=== PATIENT | male | born 1970 | race Caucasian/White ===

== ENCOUNTER 2016-12-09 05:39 | Day surgery (SDC) | payer MEDICARE ==
[~2016-12-09] VITALS: Ht 185.4 cm; Wt 105.2 kg
[~2016-12-09 05:39] MED LIST: ATIVAN1 MG PO; ATIVAN2 MG PO; BUSPIRONE HCL30 MG PO; DESERYL100 MG PO; DESYREL50 MG PO; HYDROCODONE-APA1 TAB PO; KEPPRA500 MG PO; NEUPRO TRANSDERM; NEUPRO1 EACH TOPICAL; NEURONTIN 300300 MG PO; NEURONTIN800 MG PO; NORCO 5/325 TAB1 TA1 PO; PAXIL20 MG PO; PERCOCET 10/3251 TA1 PO; ZANTAC 2525 MG; ZOFRAN4 MG PO
[2016-12-09 07:50] VITALS: BP 124/81; Ht 185.4 cm; Wt 105.2 kg
[2016-12-09] MEDS ORDERED: HYDROCODONE-APA1 TAB PO (10:48)
--- NOTE | 2016-12-09 11:33 | NUR ---
1130 BACK FROM LT CHEST WALL AND RT GROIN LIPOMA REMOVAL DRESSING C/D/I NO BLEEDING. PAIN BETTER 1. DENIES NAUSEA.
--- NOTE | 2016-12-09 12:32 | NUR ---
1200 PAIN BETTER DRESSINGS RT GROIN AND LT FLANK C/D/I NO BLEEDING ICE PACK ON PATIENT.NO NEEDS VOICED PAIN A 2.
--- NOTE | 2016-12-09 12:38 | NUR ---
1230 UP AND VOIDED. DRESSINGS C/D/I NO BLEEDING.BELONGINGS GIVEN. IV DCD CATHETER INTACT. DISCHARGE INSTRUCTIONS GIVEN TO PATIENT AND VERBALLY UNDERSTANDS, WANTS TO GO HOME AND TOLD OFFICE WAS CLOSED AND NEEDED TO MAKE A FOLLOWUP APPOINTMENT.
--- NOTE | 2016-12-09 13:15 | OP ---
PATIENT NAME: KADE HE MEDICAL RECORD: [id number] :74 LOCATION:D.OPS ADMISSION DATE: SURGEON: SE VERA MD DATE OF OPERATION: 12/09/2016 PREOPERATIVE DIAGNOSES: 1. Left flank lipoma. 2. Right inguinal lymphadenopathy. 3. Fibromyalgia. 4. History of astrocytoma. POSTOPERATIVE DIAGNOSES: 1. Left flank lipoma. 2. Right inguinal lymphadenopathy. 3. Fibromyalgia. 4. History of astrocytoma. PROCEDURE: 1. Excisional biopsy of right groin lymph node. 2. Excision of a 1 cm left flank lipoma. SURGEON: Se Vera MD REPORT OF PROCEDURE: The patient's left flank and right groin were prepped and draped in sterile fashion. The right groin was approached first. An oblique incision was made overlying an enlarged lymph node. Electrocautery was used to dissect down to and around the lymph node. This lymph was then sent off for permanent specimen fresh. The subcutaneous tissues were irrigated out and reapproximated with interrupted 3-0 Vicryl and the skin was closed with running subcutaneous 5-0 Monocryl. We approached the left flank mass. A transverse incision was made overlying this about 2 cm in size. As we dissected down, we approached about 1 cm lipoma. This was excised totally. The subcutaneous tissues were then irrigated out and reapproximated with interrupted 3-0 Vicryls. The skin was closed with running subcutaneous 5-0 Monocryl. We then infused with a total of 10 mL 0.25% Marcaine into the surrounding tissues. COMPLICATIONS: None. CONDITION: Stable. ANESTHESIA: General endotracheal and local. BLOOD LOSS: Minimal. TRANSINT:[id number] Voice Confirmation ID: [id number] DOCUMENT ID: [id number] CC: MARCO Ross OPERATIVE REPORT [id number] KADE HE GRACEJyothi SE VERA MD at 1315 CC: [id number] DICTATION DATE: 12/09/16 1053 MANAGER CABLE: 12/09/16 1134 [facility] [address] [place] [address]
--- NOTE | 2016-12-09 13:24 | NUR ---
1240 TO HOME VIA W/C WITH FAMILY.
== END 2016-12-09 12:40 | disposition home or self-care (01) ==
LOC: D.OPS 05:39 → D.PAN 08:30 → D.OPS 08:30
DX: D17.1 Benign lipomatous neoplasm of skin and subcutaneous tissue of trunk (principal); R59.0 Localized enlarged lymph nodes; M79.7 Fibromyalgia; Z85.841 Personal history of malignant neoplasm of brain

== ENCOUNTER 2017-06-13 17:34 | Emergency (ER) | payer MEDICARE ==
[2016-12-09 07:50] VITALS: BMI 30.6
[2017-06-13 19:11] LABS: BASOPHILS 0.2 % (0-2); EOSINOPHILS 0.1 % (0-7); HEMATOCRIT 47.7 % (42.0-54.0); HEMOGLOBIN 16.5 g/dL (13.5-17.5); IMMATURE GRANULOCYTES 0.2 % (0-5); LYMPHOCYTES 17.3 % (15-50); MCH 31.1 pg (26.0-34.0); MCHC 34.6 g/dL (31.0-37.0); MEAN PLATELET VOLUME 11.7 fL (7.4-10.4); MONOCYTES 6.4 % (2-11); NEUTROPHILS 75.8 % (40-80); RDW 12.5 % (11.5-14.5); WBC 11.8 10x3/uL (4.8-10.8)
[2017-06-13 19:12] LABS: PLATELET COUNT 280 10x3/uL (130-400)
[2017-06-13 19:24] LABS: ALBUMIN 4.4 g/dL (3.4-5.0); ALKALINE PHOSPHATASE 90 U/L (46-116); ALT (SGPT) 38 U/L (10-68); BILIRUBIN - TOTAL 0.76 mg/dL (0.2-1.3); CALC OSMOLALITY 281 mosm/kg (275-300); CALCIUM 9.1 mg/dL (8.5-10.1); CARBON DIOXIDE 27.1 mmol/L (21.0-32.0); CHLORIDE - SERUM 100 mmol/L (98-107); GLUCOSE 117 mg/dL (74-106); POTASSIUM - SERUM 4.1 mmol/L (3.5-5.1); PROTEIN - SERUM 7.7 g/dL (6.4-8.2); SODIUM 140 mmol/L (136-145); UREA NITROGEN 18 mg/dL (7-18); eGFR NON AFRICAN AMERICAN 86 mL/min (90-120)
[2017-06-13 21:35] LABS: APPEARANCE CLEAR (CLEAR); BILIRUBIN NEGATIVE (NEGATIVE); COLOR YELLOW (YELLOW); GLUCOSE NEGATIVE (NEGATIVE); KETONE NEGATIVE (NEGATIVE); LEUKOCYTE ESTERASE NEGATIVE (NEGATIVE); NITRITE NEGATIVE (NEGATIVE); PROTEIN TRACE mg/dL (NEGATIVE); SPECIFIC GRAVITY 1.025 (1.005-1.020); UROBILINOGEN NORMAL (NORMAL)
[2017-06-13 21:47] LABS: UDS - AMPHET NEGATIVE QUAL (NEGATIVE); UDS - BARB NEGATIVE QUAL (NEGATIVE); UDS - BENZO NEGATIVE QUAL (NEGATIVE); UDS - COCAINE NEGATIVE QUAL (NEGATIVE); UDS - METH NEGATIVE QUAL (NEGATIVE); UDS - OPIATE NEGATIVE QUAL (NEGATIVE); UDS - PCP NEGATIVE QUAL (NEGATIVE); UDS - THC NEGATIVE QUAL (NEGATIVE)
== END 2017-06-14 00:44 | disposition home or self-care (01) ==
LOC: D.ER 17:34
PROVIDERS: Emergency Medicine; Nurse Practitioner Family
DX: K59.00 Constipation, unspecified (principal)

== ENCOUNTER 2017-06-23 10:19 | Emergency (ER) | payer MEDICARE, MEDICAID ==
[2016-12-09 07:50] VITALS: BMI 30.6
[2017-06-23 12:02] LABS: APPEARANCE CLEAR (CLEAR); BILIRUBIN NEGATIVE (NEGATIVE); COLOR YELLOW (YELLOW); GLUCOSE NEGATIVE (NEGATIVE); KETONE NEGATIVE (NEGATIVE); LEUKOCYTE ESTERASE NEGATIVE (NEGATIVE); NITRITE NEGATIVE (NEGATIVE); PROTEIN NEGATIVE (NEGATIVE); UROBILINOGEN NORMAL (NORMAL)
== END 2017-06-23 15:59 | disposition home or self-care (01) ==
LOC: D.ER 10:19
PROVIDERS: Emergency Medicine
DX: R10.9 Unspecified abdominal pain (principal); K58.9 Irritable bowel syndrome, unspecified; G40.909 Epilepsy, unspecified, not intractable, without status epilepticus

== ENCOUNTER 2017-06-25 10:10 | Emergency (ER) | payer MEDICARE, MEDICAID ==
[2016-12-09 07:50] VITALS: BMI 30.6
== END 2017-06-25 13:35 | disposition home or self-care (01) ==
LOC: D.ER 10:10
DX: R10.9 Unspecified abdominal pain (principal)

== ENCOUNTER 2017-06-29 09:48 | Emergency (ER) | payer MEDICARE, MEDICAID ==
[2016-12-09 07:50] VITALS: BMI 30.6
[2017-06-29 10:35] LABS: BASOPHILS 0.1 % (0-2); EOSINOPHILS 0.8 % (0-7); IMMATURE GRANULOCYTES 0.1 % (0-5); LYMPHOCYTES 16.6 % (15-50); MCH 31.1 pg (26.0-34.0); MCHC 34.8 g/dL (31.0-37.0); MCV 89.3 fL (80.0-100.0); MEAN PLATELET VOLUME 11.3 fL (7.4-10.4); NEUTROPHILS 76.4 % (40-80); PLATELET COUNT 226 10x3/uL (130-400); RBC 5.15 10x6/uL (4.20-6.10); RDW 12.3 % (11.5-14.5); WBC 8.6 10x3/uL (4.8-10.8)
[2017-06-29 10:51] LABS: ALBUMIN 4.1 g/dL (3.4-5.0); ALKALINE PHOSPHATASE 77 U/L (46-116); ALT (SGPT) 17 U/L (10-68); AMYLASE - SERUM 39 U/L (25-115); BILIRUBIN - TOTAL 0.39 mg/dL (0.2-1.3); CALC OSMOLALITY 276 mosm/kg (275-300); CARBON DIOXIDE 29.1 mmol/L (21.0-32.0); CHLORIDE - SERUM 100 mmol/L (98-107); GLUCOSE 107 mg/dL (74-106); LIPASE 172 U/L (73-393); PROTEIN - SERUM 7.7 g/dL (6.4-8.2); SODIUM 139 mmol/L (136-145); UREA NITROGEN 11 mg/dL (7-18); eGFR NON AFRICAN AMERICAN 86 mL/min (90-120)
[2017-06-29 11:22] LABS: APPEARANCE CLEAR (CLEAR); COLOR YELLOW (YELLOW); LEUKOCYTE ESTERASE TRACE (NEGATIVE); NITRITE NEGATIVE (NEGATIVE); PROTEIN NEGATIVE (NEGATIVE)
[2017-06-29 11:23] LABS: BACTERIA FEW /hpf (NONE SEEN); BILIRUBIN NEGATIVE (NEGATIVE); EPITHELIAL CELLS 0-5 /hpf (0-5); GLUCOSE NEGATIVE (NEGATIVE); KETONE SMALL mg/dL (NEGATIVE); MUCUS >1+ /lpf (NONE SEEN); RED CELLS - URINE RARE /hpf (0-5); UROBILINOGEN NORMAL (NORMAL); WHITE CELLS - URINE 0-5 /hpf (0-5)
== END 2017-06-29 11:50 | disposition home or self-care (01) ==
LOC: D.ER 09:48
PROVIDERS: Family Medicine
DX: R10.9 Unspecified abdominal pain (principal); F17.200 Nicotine dependence, unspecified, uncomplicated

== ENCOUNTER 2017-07-04 11:46 | Emergency (ER) | payer MEDICARE, MEDICAID ==
[2016-12-09 07:50] VITALS: BMI 30.6
== END 2017-07-04 16:17 | disposition home or self-care (01) ==
LOC: D.ER 11:46
DX: R10.31 Right lower quadrant pain (principal)

== ENCOUNTER 2017-07-28 | Emergency (ER) | payer MEDICARE, MEDICAID ==
[2016-12-09 07:50] VITALS: BMI 30.6
== END 2017-07-28 01:21 | disposition home or self-care (01) ==
LOC: D.ER
DX: B02.9 Zoster without complications (principal)

== ENCOUNTER 2017-08-02 14:37 | Emergency (ER) | payer MEDICARE, MEDICAID ==
[2016-12-09 07:50] VITALS: BMI 30.6
== END 2017-08-02 15:35 | disposition home or self-care (01) ==
LOC: D.ER 14:37
DX: B02.29 Other postherpetic nervous system involvement (principal); F17.200 Nicotine dependence, unspecified, uncomplicated

== ENCOUNTER → 2017-08-10 08:29 | Outpatient (CLI) | payer MEDICARE, MEDICAID ==
[2016-12-09 07:50] VITALS: BMI 30.6
== END | disposition home or self-care (01) ==
LOC: D.NM 08:29
DX: C71.9 Malignant neoplasm of brain, unspecified (principal)

== ENCOUNTER 2017-08-20 16:12 | Emergency (ER) | payer MEDICARE, MEDICAID ==
[2016-12-09 07:50] VITALS: BMI 30.6
[2017-08-20 17:58] LABS: BASOPHILS 0.1 % (0-2); EOSINOPHILS 0 % (0-7); HEMATOCRIT 41.2 % (42.0-54.0); HEMOGLOBIN 13.9 g/dL (13.5-17.5); IMMATURE GRANULOCYTES 0.2 % (0-5); LYMPHOCYTES 5.1 % (15-50); MCH 31.3 pg (26.0-34.0); MCHC 33.7 g/dL (31.0-37.0); MCV 92.8 fL (80.0-100.0); MEAN PLATELET VOLUME 11.1 fL (7.4-10.4); MONOCYTES 6.6 % (2-11); RBC 4.44 10x6/uL (4.20-6.10); RDW 12.3 % (11.5-14.5); WBC 9.5 10x3/uL (4.8-10.8)
[2017-08-20 17:59] LABS: PLATELET COUNT 171 10x3/uL (130-400)
[2017-08-20 18:17] LABS: ALBUMIN 3.6 g/dL (3.4-5.0); ALKALINE PHOSPHATASE 85 U/L (46-116); ALT (SGPT) 25 U/L (10-68); CALC OSMOLALITY 270 mosm/kg (275-300); CALCIUM 8.7 mg/dL (8.5-10.1); CARBON DIOXIDE 29.3 mmol/L (21.0-32.0); CHLORIDE - SERUM 99 mmol/L (98-107); CREATININE - SERUM 1.1 mg/dL (0.6-1.3); GLUCOSE 129 mg/dL (74-106); PROTEIN - SERUM 6.8 g/dL (6.4-8.2); SODIUM 135 mmol/L (136-145); UREA NITROGEN 11 mg/dL (7-18); eGFR NON AFRICAN AMERICAN 77 mL/min (90-120)
[2017-08-20 18:38] LABS: C-REACTIVE PROTEIN 22.2 mg/dL (0.0-0.9)
[2017-08-20 19:28] LABS: APPEARANCE HAZY (CLEAR); BILIRUBIN NEGATIVE (NEGATIVE); COLOR DK YELLOW (YELLOW); GLUCOSE NEGATIVE (NEGATIVE); KETONE SMALL mg/dL (NEGATIVE); LEUKOCYTE ESTERASE TRACE (NEGATIVE); NITRITE POSITIVE (NEGATIVE); PROTEIN 2+ mg/dL (NEGATIVE); SPECIFIC GRAVITY 1.015 (1.005-1.020); UROBILINOGEN NORMAL (NORMAL)
[2017-08-20 19:32] LABS: BACTERIA MANY /hpf (NONE SEEN); EPITHELIAL CELLS 0-5 /hpf (0-5); MUCUS <1+ /lpf (NONE SEEN); RED CELLS - URINE 0-5 /hpf (0-5); WHITE CELLS - URINE 25-50 /hpf (0-5)
== END 2017-08-20 21:55 | disposition home or self-care (01) ==
LOC: D.ER 16:12
PROVIDERS: Nurse Practitioner Acute Care
DX: N10 Acute pyelonephritis (principal)

== ENCOUNTER 2017-11-06 10:07 | Emergency (ER) | payer MEDICARE, MEDICAID ==
[2016-12-09 07:50] VITALS: BMI 30.6
== END 2017-11-06 12:28 | disposition home or self-care (01) ==
LOC: D.ER 10:07
DX: S99.911A Unspecified injury of right ankle, initial encounter (principal); W10.9XXA Fall (on) (from) unspecified stairs and steps, initial encounter; Y93.89 Activity, other specified; Y92.019 Unspecified place in single-family (private) house as the place of occurrence of the external cause

== ENCOUNTER 2017-11-17 02:36 | Emergency (ER) | payer MEDICARE, MEDICAID ==
[2016-12-09 07:50] VITALS: BMI 30.6
[2017-11-17 03:00] LABS: APPEARANCE CLEAR (CLEAR); BILIRUBIN NEGATIVE (NEGATIVE); COLOR YELLOW (YELLOW); GLUCOSE NEGATIVE (NEGATIVE); KETONE NEGATIVE (NEGATIVE); NITRITE NEGATIVE (NEGATIVE); PROTEIN NEGATIVE (NEGATIVE); UROBILINOGEN NORMAL (NORMAL)
[2017-11-17 03:07] LABS: UDS - AMPHET NEGATIVE QUAL (NEGATIVE); UDS - BARB NEGATIVE QUAL (NEGATIVE); UDS - BENZO POSITIVE QUAL (NEGATIVE); UDS - COCAINE NEGATIVE QUAL (NEGATIVE); UDS - OPIATE POSITIVE QUAL (NEGATIVE); UDS - PCP NEGATIVE QUAL (NEGATIVE); UDS - THC NEGATIVE QUAL (NEGATIVE)
== END 2017-11-17 03:37 | disposition home or self-care (01) ==
LOC: D.ER 02:36
PROVIDERS: Family Medicine
DX: S29.012A Strain of muscle and tendon of back wall of thorax, initial encounter (principal); W10.9XXA Fall (on) (from) unspecified stairs and steps, initial encounter; Y93.89 Activity, other specified; Y92.019 Unspecified place in single-family (private) house as the place of occurrence of the external cause; S39.012A Strain of muscle, fascia and tendon of lower back, initial encounter

== ENCOUNTER 2017-11-19 17:59 | Emergency (ER) | payer MEDICARE, MEDICAID ==
[2016-12-09 07:50] VITALS: BMI 30.6
== END 2017-11-19 20:00 | disposition home or self-care (01) ==
LOC: D.ER 17:59
DX: S39.012A Strain of muscle, fascia and tendon of lower back, initial encounter (principal); W10.9XXA Fall (on) (from) unspecified stairs and steps, initial encounter; Y93.89 Activity, other specified; Y92.89 Other specified places as the place of occurrence of the external cause; M62.830 Muscle spasm of back

== ENCOUNTER 2017-11-21 11:29 | Emergency (ER) | payer MEDICARE, MEDICAID ==
[2016-12-09 07:50] VITALS: BMI 30.6
== END 2017-11-21 15:59 | disposition home or self-care (01) ==
LOC: D.ER 11:29
DX: M54.16 Radiculopathy, lumbar region (principal)

== ENCOUNTER 2017-11-23 09:27 | Emergency (ER) | payer MEDICARE, MEDICAID ==
[2016-12-09 07:50] VITALS: BMI 30.6
== END 2017-11-23 11:23 | disposition home or self-care (01) ==
LOC: D.ER 09:27
DX: M54.16 Radiculopathy, lumbar region (principal)

== ENCOUNTER 2018-01-14 20:57 | Emergency (ER) | payer MEDICARE ==
[2016-12-09 07:50] VITALS: BMI 30.6
== END 2018-01-14 21:48 | disposition home or self-care (01) ==
LOC: D.ER 20:57
DX: M25.50 Pain in unspecified joint (principal); M79.7 Fibromyalgia

== ENCOUNTER 2018-04-05 09:58 | Observation (INO) | payer MEDICARE ==
[~2018-04-05] VITALS: Ht 185.4 cm; Wt 108.7 kg
--- NOTE | ~2018-04-05 | CN ---
PATIENT NAME:KADE HE MEDICAL RECORD: [id number] : 74 LOCATION:D. D.2115 ADMIT DATE: 04/05/18 ACCOUNT: [id number] CONSULTING PHYSICIAN: ETHAN ZAVALA MD REFERRING PHYSICIAN: JORDIN MARTINEZ MD DATE OF CONSULTATION: 04/05/2018 HISTORY: This is a 48-year-old gentleman with no known history of coronary disease. He has history of brain carcinoma, seizure disorder. He has been having chest pain for the past 12-24 hours. Pain is radiating to his back, associated with some nausea, and into the left jaw. He has had intermittent headaches for about the past 3 weeks. He does have strong family history of coronary disease. Cholesterol level is unknown. We are asked to see him concerning cardiovascular status. PAST MEDICAL HISTORY: Includes; 1. History of irritable bowel syndrome. 2. Brain carcinoma, status post treatment with resultant seizure disorder. 3. Peripheral neuropathy. MEDICATIONS: Includes Paxil 20 mg p.o. daily, trazodone 300 at bedtime, Ativan 1 mg q. 8 hours p.r.n., Neurontin 1.2 grams t.i.d., Keppra a gram daily, [place] 10/325 one q. 4 p.r.n., Ambien 20 mg at bedtime p.r.n. ALLERGIES: TALWIN, ASPIRIN, IBUPROFEN. SOCIAL HISTORY: Nonsmoker, nondrinker. He is able to take care of his ADLs. REVIEW OF SYSTEMS: The patient reports easy bruising but reports no swollen glands. The patient reports no fever, no night sweats, no significant weight gain, no significant weight loss. No significant exercise tolerance. The patient reports no dry eyes, no irritation, no vision change. Patient reports no difficulty hearing and no ear pain. Patient reports no frequent nose bleeds or nose and sinus problems. Patient reports on arm pain on exertion. No shortness of breath while lying down. No history of heart murmur. Patient reports no cough, no wheezing or coughing up blood. Patient reports no abdominal pain, no vomiting. Normal appetite. No diarrhea and not vomiting blood. No nausea and no constipation. Patient reports no incontinence. No difficulty urinating. No hematuria. No increased frequency. Patient reports no muscle aches. No weakness, no arthralgias, no back pain. No swelling of the extremities. Patient reports no abnormal mole, no jaundice, no rashes. Reports no loss of consciousness. No weakness and no numbness. No seizures, dizziness, or headaches. The patient reports no depression, no sleep disturbance, feeling safe in a relationship and no alcohol abuse. Patient reports on fatigue. Reports no runny nose or sinus pressure. No itching, no hives, and no frequent sneezing. PHYSICAL EXAMINATION GENERAL: Pleasant gentleman, appears stated age, in no acute distress. HEENT: Normocephalic, atraumatic. NECK: No bruits noted. HEART: Regular. LUNGS: Brand clear. ABDOMEN: Soft, nontender. EXTREMITIES: Pulses 2+. No edema. CONSULT REPORT [id number] KADE HE ECG shows poor R wave progression. IMPRESSION: Acute coronary syndrome. PLAN: Diagnostic angiography and intervention based on above. TRANSINT:[id number] Voice Confirmation ID: [id number] DOCUMENT ID: [id number] ETHAN ZAVALA MD at 1214 CC: [id number] DICTATION DATE: 04/05/18 1547 MOLDING FITTER: 04/05/18 1901 DIS IN 04/08/18 [facility] [address] [place] [address]
--- NOTE | ~2018-04-05 | OP ---
PATIENT NAME: KADE HE MEDICAL RECORD: [id number] :74 LOCATION:D.M2 D.2115 ADMISSION DATE:04/05/18 SURGEON: ETHAN ZAVALA MD DATE OF OPERATION: 04/06/2018 PROCEDURE: Left heart catheterization, selective coronary angiography, right femoral artery approach. CATHETERS: A 5-Danish sheath, 5/4 left and right Srikanth, 5/4 pig. The procedure was well tolerated. The patient returned to the leos, sheath removed, adequate hemostasis as well as ExoSeal device was placed. FINDINGS: Left ventriculography in 30-degree TAVERAS view: Normal wall motion, normal systolic function. CORONARY ANATOMY: LEFT MAIN: Left main is free of disease. LAD: LAD is free of disease. CIRCUMFLEX: Circumflex is free of disease in the marginal system. RIGHT CORONARY ARTERY: Dominant artery, gives rise to PDA, free of disease. IMPRESSION: Normal systolic function. Normal coronary anatomy. TRANSINT:[id number] Voice Confirmation ID: [id number] DOCUMENT ID: [id number] ETHAN ZAVALA MD at 1214 CC: [id number] DICTATION DATE: 04/06/18 1344 UNIT SECRETARY: 04/06/18 1827 DIS IN 04/08/18 [facility] [address] [place] [address]
--- NOTE | ~2018-04-05 | HEMODYNAMI ---
PATIENT:KADE HE MEDICAL RECORD: [id number] : 74 LOCATION:[facility] D.2307 ADMISSION DATE: 04/05/18 Generatedon:04/06/201812:52 Patient name: KADE HE Patient #: [id number] SSN: : Date of study: 04/06/2018 Page: Of Hemodynamic Procedure Report Patient Data Patient Demographics Procedure consent was obtained First Name: KADE Gender: Male Last Name: NERI : 1970 Middle Initial: OVE Age: 48 year(s) Patient #: [id number] Race: Unknown Additional ID: [id number] Contact details Address: [address] [place] [address] [place] State: [place] City: [place] Zip code: [address] Past Medical History Allergies Allergen Reaction Date Comments Reported Other allergy 04/06/2018 NORCO, TALWIN, ASA, IBUPROFEN Admission Admission Data Admission Date: 04/05/2018 Admission Time: 22:00 Room #: D.2307 Lab Results Lab Result Date: 04/06/2018 Lab Result Time: 0:00 Biochemistry Name Units Result Min Max BUN mg/dl 14 --(--*-)-- 7 18 Creatinine mg/dl 0.9 --(-*--)-- 0.6 1.3 CBC Name Units Result Min Max Hemoglobin g/dl 14.3 --(*---)-- 13.5 17.5 Procedure Procedure Types Cath Procedure Diagnostic Procedure LHC LHC w/Coronaries Procedure Description Procedure Date Procedure Date: 04/06/2018 Procedure Start Time: 12:42 Procedure End Time: 12:50 Procedure Staff Name Function Tanner Quintero MD Performing Physician Isabel Hunter RT Monitor Tess Brand RT Scrub Vaughn Myers RN Agronomy Research Manager Maia Delgadillo RN Nurse Procedure Data Cath Procedure Fluoroscopy Diagnostic fluoroscopy Total fluoroscopy Time: 0.9 time: 0.9 min min Diagnostic fluoroscopy Total fluoroscopy dose: 230 dose: 230 mGy mGy Contrast Material Contrast Material Type Amount (ml) Isovue 300 49 Entry Location Entry Primary Successful Side Size Upsize Upsize Entry Closure Succes sful Closure Location (Fr) 1 (Fr) 2 (Fr) Remarks Device Remarks Femoral Right 5 Fr Exoseal artery Estimated blood loss: 10 ml Diagnostic catheters Device Type Used For End Catheter Placement MULTIPACK JL 4.0 5Fr Procedure catheter MULTIPACK 3DRC 5Fr Procedure catheter MULTIPACK Pigtail 5 Fr Procedure catheter Procedure Complications No complications Procedure Medications Medication Administration Route Dosage Oxygen NC 2 l/min Lidocaine 2% added to field 20 Heparin Flush Bag added to field 2 bags (1000units/500ml NS) 0.9% NaCl I.V. 100 ml/hr Versed I.V. 2 mg Fentanyl I.V. 100 mcg Versed I.V. 1 mg Fentanyl I.V. 50 mcg Versed I.V. 1 mg Fentanyl I.V. 50 mcg Hemodynamics Rest HGB: 14.3 (g/dl) Heart Rate: 68 (bpm) Pressure Samples Time Site Value (mmHg) Purpose Heart Use Rate(bpm) 12:47 LV 113/12,15 Snapshot 79 12:47 AO 119/83(104) Pullback 77 12:47 LV 84/27,14 Pullback 77 Gradients Valve Time Site 1 Site 2 Mean SEP/DFP Peak To Heart Use (mmHg) (sec/min) Peak Rate (mmHg) (bpm) Aortic 12:47 LV AO 0 5 0 77 84/27,14 119/83(104) Calculations Valve P-P Mean Valve Index Valve Source Name Gradient Area Flow (cm2) Aortic 0 0 0 0 Snapshots Pre Cath Intra NCS Post Cath Vital Signs Time Heart Resp SPO2 etCO2 NIBP (mmHg) Rhythm Pain Sedation Rate (ipm) (%) (mmHg) Status Level (bpm) 12:39:34 80 19 95 44.2 117/87(104) NSR 0 (11) 10(A) , No pain 12:43:42 82 20 93 44.9 110/80(92) NSR 0 (11) 10(A) , No pain 12:47:47 82 15 95 36.6 106/81(102) NSR 0 (11) 9(A) , No pain 12:51:20 81 19 95 40.4 121/84(104) NSR 0 (11) 10(A) , No pain Medications Time Medication Route Dose Verified Delivered Reason Notes Effe ctiveness by by 12:38:47 Oxygen NC 2 Tanner Buffie used for l/min IngridMartinez Delgadillo telephone supervisor 12:38:53 Lidocaine 2% added 20ml Tanner Tanner for local to vial [facility] anesthetic field MD ALFARO 12:39:01 Heparin Flush added 2 Tanner Tanner used for Bag to bags [facility] procedure (1000units/500ml field MD ALFARO NS) 12:39:11 0.9% NaCl I.V. 100 Tanner Buffie Per ml/hr Ingrid Delgadillo RN physician 12:40:58 Versed I.V. 2 mg Tanner Buffie for Ingrid Delgadillo RN sedation 12:41:05 Fentanyl I.V. 100 Tanner Buffie for [facility] Ingrid Delgadillo RN sedation 12:43:52 Versed I.V. 1 mg Tanner Buffie for Ingrid Delgadillo RN sedation 12:43:56 Fentanyl I.V. 50 Tanner Buffie for mcg Ingrid Delgadillo RN sedation 12:46:28 Versed I.V. 1 mg Tanner Buffie for Ingrid Delgadillo RN sedation 12:46:32 Fentanyl I.V. [address] [facility] Delgadillo RN sedation Procedure Log Time Note 12:16:01 Vaughn Myers RN sent for patient. Start room use. 12:16:02 Time tracking: Regular hours (M-F 7:00 - 5:00) 12:16:05 Plan of Care:Hemodynamics will remain stable., Cardiac rhythm will remain stable., Comfort level will be maintained., Respiratory function will remain adequate., Patient/ family verbilizes understanding of procedure., Procedure tolerated without complication., Recovers from procedure without complications.. 12:16:10 Signed procedure consent form obtained from patient. 12:16:22 H&P Date Dictated: 04/05/2018 Within 30 days and on chart.. 12:18:32 Lab Result : BUN 14 mg/dl 12:18:32 Lab Result : Creatinine 0.9 mg/dl 12:18:32 Lab Result : Hemoglobin 14.3 g/dl 12:19:21 Patient allergic to Other allergyNORCO, TALWIN, ASA, IBUPROFEN 12:22:17 Patient received from ICU to [facility] 2 Alert and oriented. Tansferred to table in Supine position. 12:22:19 Warm blankets applied, and ofelia hugger turned on for patient comfort. 12:22:19 Correct patient and procedure confirmed by team. 12:22:24 ECG and BP/O2 sat monitors applied to patient. 12:38:34 Vital chart was started 12:38:36 Baseline sample Acquired. 12:38:41 Rhythm: sinus rhythm 12::42 Full Disclosure recording started 12::44 Pre-procedure instructions explained to patient. 12:38:47 Oxygen 2 l/min NC was administered by Maia Delgadillo RN; used for procedure; 12:38:51 Was the patient premedicated? Yes 12:38:53 Lidocaine 2% 20ml vial added to field was administered by Tanner Quintero MD; for local anesthetic; 12:38:53 Is patient on blood thinner?No 12:38:55 Patient diabetic? No. 12:39:01 Heparin Flush Bag (1000units/500ml NS) 2 bags added to field was administered by Tanner Quintero MD; used for procedure; 12:39:01 Snore? Yes 12:39:03 Sleep apnea? Yes 12:39:11 0.9% NaCl 100 ml/hr I.V. was administered by Maia Delgadillo RN; Per physician; 12:39:12 Patient pain scale 1/10 ?. 12:39:19 IV patent on arrival in left forearm with 0.9% NaCl at [facility]. 12:39:25 Lab results completed and on chart. 12:39:29 Right groin area was prepped with chlora-prep and draped in sterile fashion 12:39:29 Alarms reviewed by R. N. 12:39:31 Sharps counted by scrub and verified by R.N. 12:39:33 Physician paged 12:39:39 Physician arrived 12:39:39 --------ALL STOP TIME OUT------ 12:39:42 Final Timeout: patient, procedure, and site verified with staff and physician. All members of the team are in agreement. 12:39:44 Right groin site verified by team. 12:39:48 Physical assessment completed. ASA score P 2 - A patient with mild systemic disease as per Tanner Quintero MD. 12:39:52 Sedation plan: IV Moderate Sedation Medication:Versed, Fentanyl 12:39:58 Use device set Femoral Dx 12:40:33 ACIST Syringe (02001) opened to sterile field. 12:40:33 Bag Decanter (2002S) opened to sterile field. 12:40:34 Medline Cath Pack ([id number]) opened to sterile field. 12:40:35 DIAGNOSTIC WIRE .035 260cm J wire (925875) opened to sterile field. 12:40:36 ACIST Hand Control (42894) opened to sterile field. 12:40:37 ACIST Manifold (17122) opened to sterile field. 12:40:37 DIAGNOSTIC Multipack 5Fr catheter set (HB7000) opened to sterile field. 12:40:37 Tegaderm 4 x 4 (1626W) opened to sterile field. 12:40:38 PERCUTANEOUS ENTRY 19GA needle opened to sterile field. 12:40:44 SHEATH Prelude 5Fr 0.035 ([id number]-7M-96-035) opened to sterile field. 12:40:58 Versed 2 mg I.V. was administered by Maia Delgadillo RN; for sedation; 12:41:05 Fentanyl 100 mcg I.V. was administered by Maia Delgadillo RN; for sedation; 12:42:00 Procedure started. 12:42:07 Local anesthetic to right femoral artery with Lidocaine 2% by Tanner Quintero MD.INITIAL ACCESS ONLY 12:42:57 A 5 Fr sheath was inserted into the Right Femoral artery 12:43:32 A MULTIPACK JL 4.0 5Fr catheter was advanced over the wire and used for Procedure. 12:43:37 LCA angiography performed. 12:43:52 Versed 1 mg I.V. was administered by Maia Delgadillo RN; for sedation; 12:43:56 Fentanyl 50 mcg I.V. was administered by Maia Delgadillo RN; for sedation; 12:45:42 Catheter removed. 12:45:48 A MULTIPACK 3DRC 5Fr catheter was advanced over the wire and used for Procedure. 12:45:56 Catheter removed. 12:46:02 A MULTIPACK Pigtail 5 Fr catheter was advanced over the wire and used for Procedure. 12:46:18 Zero performed for pressure channel P1 12:46:25 Zero performed for pressure channel P1 12:46:28 Versed 1 mg I.V. was administered by Maia Delgadillo RN; for sedation; 12:46:32 Fentanyl 50 mcg I.V. was administered by Maia Delgadillo RN; for sedation; 12:47:01 LV angiography performed. 12:47:36 EF : 55 % 12:47:37 EXOSEAL 5Fr (EX500) opened to sterile field. 12:47:53 Catheter removed. 12:48:19 Sheath removed intact; hemostasis achieved with Exoseal to the Right Femoral artery. 12:48:27 Procedure ended.(Physican Out) 12:48:32 Fluoroscopy time 00.90 minutes. 12:48:37 Flurop Dose total: 230 12:48:37 Fluoroscopy dose: 230 mGy 12:48:42 Contrast amount:Isovue 300 49ml. 12:48:44 Sharps counted by scrub and verified by R.N. 12:48:48 Insertion/operative site no bleeding no hematoma. 12:48:54 Post-op/insertion site Right Femoral artery dressed using a 4 x 4 and Tegaderm. 12:48:56 Post Procedure Pulses reassessed and unchanged 12:49:05 Post-procedure physical assessment completed. ASA score P 2 - A patient with mild systemic disease as per Tanner Quintero MD. 12:49:10 Post procedure rhythm: sinus rhythm 12:49:13 Estimated blood loss: 10 ml 12:49:15 Post procedure instruction explained to patient.Patient verbalizes understanding. 12:49:39 Procedure and supply charges have been captured, reviewed, submitted and are correct. 12:49:59 Procedure Complication : No complications 12:50:03 Vital chart was stopped 12:50:04 See physician's report for complete and final results. 12:50:05 Report given to Pre/Post Procedure Room. 12:50:09 Patient transfered to Pre/Post Procedure Room with Stretcher. 12:50:11 Procedure ended. 12:50:11 Full Disclosure recording stopped 12:50:13 End room use (Document Last) 12:50:14 End room use (Document Last) Device Usage Item Name Manufacture Quantity Catalog Number Hospital Part Current M inimal Lot# / Charge Number Stock Stock Serial# Code ACIST Syringe Acist 1 50475 [id number] [id number] [id number] 2 0 (90687) [employer] Bag Decanter Microtek 1 068430 28935 205110 5 () [employer] Inc[employer] Medline Cath Cardinal 1 [id number] 838325 33112 306960 5 [facility] ([id number]) DIAGNOSTIC WIRE St Ari 1 318781 796594 263451 487764 3 0 .035 260cm J wire (669745) ACIST Hand Acist 1 35520 337712 525991 108093 5 Control (99257) [employer] ACIST Manifold Acist 1 46885 415711 641269 229674 5 (95762) [employer] DIAGNOSTIC Cardinal 1 [id number] 438294 50176 489592 3 0 Multipack 5Fr Health catheter set ([id number]) Tegaderm 4 x 4 3M 1 1626W 038559 517269 084742 5 (1626W) PERCUTANEOUS [employer] 1 [id number] 587085 020029 5 ENTRY 19GA needle SHEATH Prelude Merit 1 [id number] 009346 709523 910804 5 5Fr 0.035 Medical ([id number]-[id number]-54-035) MULTIPACK JL Cardinal 1 793173 5 4.0 5Fr Health catheter MULTIPACK 3DRC Cardinal 1 757646 5 5Fr catheter Health MULTIPACK Cardinal 1 695493 5 Pigtail 5 Fr Health catheter EXOSEAL 5Fr Cardinal 1 EX500 975564 852740 828522 1 0 (EX500) Health Signature Audit [place] Stage Time Signature Unsigned Intra-Procedure 04/06/2018 Isabel Hunter 12:52:31 PM RT(R) Signatures Monitor : Isabel Hunter Signature : RT Date : Time : [address] [address]
[2018-04-05 10:46] LABS: BASOPHILS 0.2 % (0-2); EOSINOPHILS 0.6 % (0-7); HEMATOCRIT 44.7 % (42.0-54.0); IMMATURE GRANULOCYTES 0.2 % (0-5); LYMPHOCYTES 16.3 % (15-50); MCH 31.4 pg (26.0-34.0); MCHC 35.8 g/dL (31.0-37.0); MCV 87.6 fL (80.0-100.0); MEAN PLATELET VOLUME 11.1 fL (7.4-10.4); MONOCYTES 4.2 % (2-11); NEUTROPHILS 78.5 % (40-80); RDW 12.3 % (11.5-14.5); WBC 9.1 10x3/uL (4.8-10.8)
[2018-04-05 10:47] LABS: PLATELET COUNT 213 10x3/uL (130-400)
[2018-04-05 11:07] LABS: ALKALINE PHOSPHATASE 84 U/L (46-116); ALT (SGPT) 30 U/L (10-68); BILIRUBIN - TOTAL 0.52 mg/dL (0.2-1.3); CALC OSMOLALITY 272 mosm/kg (275-300); CALCIUM 9.7 mg/dL (8.5-10.1); CARBON DIOXIDE 25.6 mmol/L (21.0-32.0); CHLORIDE - SERUM 101 mmol/L (98-107); CREATININE - SERUM 1.1 mg/dL (0.6-1.3); GLUCOSE 105 mg/dL (74-106); POTASSIUM - SERUM 4.2 mmol/L (3.5-5.1); PROTEIN - SERUM 7.7 g/dL (6.4-8.2); SODIUM 136 mmol/L (136-145); UREA NITROGEN 16 mg/dL (7-18); eGFR NON AFRICAN AMERICAN 76 mL/min (90-120)
[2018-04-05 11:18] LABS: CKMB 0.5 U/L (0.0-3.6); CREATINE KINASE 131 UL (21-232)
[2018-04-05 11:32] LABS: TROPONIN-I < 0.017 ng/mL (0.000-0.060)
[2018-04-05 14:23] LABS: CKMB 0.6 U/L (0.0-3.6); CREATINE KINASE 115 UL (21-232)
[2018-04-05 14:25] LABS: TROPONIN-I < 0.017 ng/mL (0.000-0.060)
[2018-04-05] MEDS ORDERED: AMBIEN10 MG PO (15:45)
[2018-04-05 17:27] LABS: APPEARANCE CLEAR (CLEAR); BILIRUBIN NEGATIVE (NEGATIVE); COLOR YELLOW (YELLOW); GLUCOSE NEGATIVE (NEGATIVE); KETONE NEGATIVE (NEGATIVE); NITRITE NEGATIVE (NEGATIVE); PROTEIN TRACE mg/dL (NEGATIVE); SPECIFIC GRAVITY 1.025 (1.005-1.020); UROBILINOGEN NORMAL (NORMAL)
[2018-04-05 17:28] LABS: UDS - AMPHET NEGATIVE QUAL (NEGATIVE); UDS - BARB NEGATIVE QUAL (NEGATIVE); UDS - BENZO NEGATIVE QUAL (NEGATIVE); UDS - COCAINE NEGATIVE QUAL (NEGATIVE); UDS - OPIATE POSITIVE QUAL (NEGATIVE); UDS - PCP NEGATIVE QUAL (NEGATIVE); UDS - THC NEGATIVE QUAL (NEGATIVE)
[2018-04-05 20:41] LABS: CKMB 0.2 U/L (0.0-3.6); CREATINE KINASE 95 UL (21-232)
[2018-04-05 20:42] LABS: TROPONIN-I < 0.017 ng/mL (0.000-0.060)
[2018-04-05 22:09] VITALS: BP 143/96
[2018-04-05 23:06] VITALS: BP 129/79
[2018-04-06] VITALS (17 sets, daily range): BP systolic 91–125; BP diastolic 58–91; Ht 185.4 cm; Wt 108.7 kg
[2018-04-06 01:21] LABS: BASOPHILS 0.3 % (0-2); EOSINOPHILS 0.8 % (0-7); HEMATOCRIT 40.9 % (42.0-54.0); HEMOGLOBIN 14.3 g/dL (13.5-17.5); IMMATURE GRANULOCYTES 0.1 % (0-5); LYMPHOCYTES 30.1 % (15-50); MCH 30.8 pg (26.0-34.0); MCV 88.1 fL (80.0-100.0); MEAN PLATELET VOLUME 11.1 fL (7.4-10.4); MONOCYTES 6.3 % (2-11); NEUTROPHILS 62.4 % (40-80); PLATELET COUNT 225 10x3/uL (130-400); RBC 4.64 10x6/uL (4.20-6.10); RDW 12.3 % (11.5-14.5); WBC 7.7 10x3/uL (4.8-10.8)
[2018-04-06 01:39] LABS: CALC OSMOLALITY 276 mosm/kg (275-300); CALCIUM 8.6 mg/dL (8.5-10.1); CARBON DIOXIDE 27.8 mmol/L (21.0-32.0); CHLORIDE - SERUM 101 mmol/L (98-107); CKMB 0.5 U/L (0.0-3.6); CREATINE KINASE 74 UL (21-232); CREATININE - SERUM 0.9 mg/dL (0.6-1.3); GLUCOSE 105 mg/dL (74-106); SODIUM 138 mmol/L (136-145); TROPONIN-I < 0.017 ng/mL (0.000-0.060); UREA NITROGEN 14 mg/dL (7-18); eGFR NON AFRICAN AMERICAN > 90 mL/min (90-120)
[2018-04-07 01:26] VITALS: BP 113/70
[2018-04-07 05:37] VITALS: BP 93/48
[2018-04-07 08:43] VITALS: BP 112/71
[2018-04-07 11:58] VITALS: BP 114/73
[2018-04-07 16:44] VITALS: BP 105/68
[2018-04-07 21:57] VITALS: BP 125/76
[2018-04-08 01:43] VITALS: BP 120/72
[2018-04-08 06:17] VITALS: BP 114/44
[2018-04-08 09:16] VITALS: BP 116/82
[2018-04-08] MEDS ORDERED: CARAFATE1 G PO (10:12)
[2018-04-08] MEDS ORDERED: KEPPRA500 MG PO (10:12)
[2018-04-08] MEDS ORDERED: PROTONIX40 MG PO (10:12)
[2018-04-08] MEDS ORDERED: NORCO 7.5/325 T1 TA1 PO (10:14)
== END 2018-04-08 11:45 | disposition home or self-care (01) ==
LOC: D.ER 09:58 → D.M2 12:49 → D.ICU 12:49 → D.M2 12:49 → OBSVTIME 12:49 → D.ICU 21:48 → D.M2 04-06 18:37
PROVIDERS: Emergency Medicine; Internal Medicine Nephrology
DX: R07.9 Chest pain, unspecified (principal); G93.89 Other specified disorders of brain; R51 Headache; Z85.841 Personal history of malignant neoplasm of brain; F41.9 Anxiety disorder, unspecified; F32.9 Major depressive disorder, single episode, unspecified; K58.9 Irritable bowel syndrome, unspecified; G62.9 Polyneuropathy, unspecified; G40.909 Epilepsy, unspecified, not intractable, without status epilepticus; Z87.891 Personal history of nicotine dependence

== ENCOUNTER 2018-04-10 11:07 | Emergency (ER) | payer MEDICARE ==
[2018-04-06 09:58] VITALS: BMI 23.7
[~2018-04-10 11:07] MED LIST changes: +AMBIEN10 MG PO; +CARAFATE1 G PO; +NORCO 7.5/325 T1 TA1 PO; +PROTONIX40 MG PO
== END 2018-04-10 12:20 | disposition home or self-care (01) ==
LOC: D.ER 11:07
DX: Z86.79 Personal history of other diseases of the circulatory system (principal); Z86.59 Personal history of other mental and behavioral disorders; G40.909 Epilepsy, unspecified, not intractable, without status epilepticus